=== PATIENT | male | born 1935 | race Caucasian/White ===

== ENCOUNTER 2017-08-27 14:02 | Inpatient (IN) ==
[2017-08-27 14:58] LABS: Hematocrit 38.1 % (37.5-50.1); Hemoglobin 13.4 g/dL (12.9-16.9); Mean Corpuscular HGB Conc 35.2 g/dL (31.6-35.5); Mean Corpuscular Hemoglobin 30.7 pg (28.0-33.3); Mean Corpuscular Volume 87.4 fL (83.0-100.0); Mean Platelet Volume 9.9 fL (9.4-12.4); Platelet Count 156 K/mcL (140-400); Red Blood Count 4.36 M/mcL (4.19-5.50); Red Cell Distribution Width 13.6 % (11.5-14.5)
[2017-08-27] MEDS ORDERED: 0.9 % Sodium Chloride 1,000 ML IVC ONE (15:01)
--- NOTE | 2017-08-27 15:06 | Emergency Department Note ---
Disposition Clinical Impression: Lytic bone lesion of hip Leukopenia Qualifiers: Leukopenia type: neutropenia Neutropenia type: other Qualified Code(s): D70.8 - Other neutropenia Diarrhea Qualifiers: Diarrhea type: unspecified type Qualified Code(s): R19.7 - Diarrhea, unspecified Nausea and vomiting Qualifiers: Vomiting type: unspecified Vomiting Intractability: non-intractable Qualified Code(s): R11.2 - Nausea with vomiting, unspecified Abdominal pain Qualifiers: Abdominal location: epigastric Qualified Code(s): R10.13 - Epigastric pain Disposition: Admitted As Inpatient Condition: Fair Referrals: Elizabeth Gutierrez SENIOR GRAPHIC DESIGNER [Primary Care Provider] - Forms: ED Satisfaction Letter, Work/School Release Time of Disposition: 17:23 Abdominal Pain HPI - General Chief Complaint: ED Abdominal Pain Stated Complaint: abd pain Time Seen by Provider: 08/27/17 14:33 Nursing Notes Reviewed: Yes Vital Signs Reviewed: Yes - History of Present Illness HPI Narrative: 81-year-old male presents from home with daughter and bedside for evaluation of epigastric abdominal pain. Onset 3 days ago. Associated with loose stools-3-4X per day, no melena, no hematochezia. Also associated with nausea and vomiting-nonbloody, nonbilious. As well as decreased by mouth intake. Patient also notes dyspnea with exertion concomittent with these symptoms. PMH: Hyperlipidemia, type 2 diabetes managed with diet. No history of DVT, PE, ACS, aortic aneurysm. ROS: Positive: As above Negative: Fever, chills, chest pain, palpitations, unusual back pain, diaphoresis, dysuria, cough, Pain Scale: 8 - Related Data Allergies Allergy/AdvReac Type Severity Reaction Status Date / Time Penicillins [PCN] Allergy Hives Verified 08/27/17 14:10 All systems ED: reviewed and negative except as stated. Review of Systems: As Per HPI Physical Exam Vital Signs Reviewed General: Patient is alert, oriented, and in no acute distress. Head: atraumatic, normocephalic Eye: normal appearance, no scleral icterus, no conjunctival injection ENT: mucous membranes moist, normal external ear exam Neck: normal inspection, trachea midline, full ROM Chest: normal inspection, symmetric chest rise Respiratory: Good respiratory effort. Bilateral breath sounds are clear without wheezing, crackles, or rhonchi. Cardiovascular: Regular rate and rhythm. No clicks, rubs, gallops, or murmors. Normal heart sounds. Abdomen: Bowel sounds present normoactive x-4 quadrants. Abdomen is soft, nondistended. Epigastric tenderness. Guarding is present. No rebound. Musculoskeletal: Spontaneously moving all extremities. Skin: warm, dry, intact. Neuro: Alert and oriented x4. Sensation light touch intact. Psych: Patient's affect is appropriate for situation. Course Course Narrative: Patient presents with abdominal pain concerning for multiple potential etiologies. CT abdomen and pelvis has multiple findings. Clinically, do not suspect ileus as he is having nausea, vomiting, loose stools. I am concerned about the right iliac lytic lesion in the context of his leukopenia. He has had leukopenia previously noted on his historical lab work back 2014. Otherwise , patient appears comfortable at this time. Nausea well controlled with Zofran. I discussed the above with the patient, his daughter, and at bedside. They are agreeable to admission for continued evaluation and management. Next I discussed the patient with the admitting hospitals, Dr. Sanders, who agrees to accept the patient for continued evaluation and management. Abdomen/Pelvis CT 08/27/17 15:02 IMPRESSION: 1. Intraluminal hyperdensity within the fundus of the stomach, may reflect gastritis/ small upper GI bleed. Could consider endoscopy for further evaluation, as indicated. 2. Borderline dilated loops of small bowel without obvious transition point, may reflect ileus, but early bowel obstruction is difficult to exclude. Progress radiographs could be of further diagnostic aid, as indicated. 3. Diverticulosis without CT evidence of diverticulitis. 4. Small amount of nonspecific free fluid in the pelvis. 5. Lytic lesion involving the right iliac bone is suspicious for neoplasm, of uncertain primary. MRI, bone scan and/or soft tissue sampling could be considered for further evaluation, as indicated. 6. Other stable and incidental findings, as above. D/ / Gustavo Brewer / Gustavo Brewer Interpreting Provider: Gustavo Brewer Vital Signs Temperature 98.6 F 08/27/17 14:09 Pulse Rate 129 08/27/17 14:09 Respiratory Rate 22 08/27/17 14:09 Blood Pressure 133/69 08/27/17 14:09 O2 Sat by Pulse Oximetry 97 08/27/17 14:09 Temperature 98.6 F 08/27/17 15:05 Pulse Rate 105 08/27/17 16:28 Respiratory Rate 22 08/27/17 16:28 Blood Pressure 118/73 08/27/17 16:28 O2 Sat by Pulse Oximetry 98 08/27/17 16:28 Oxygen Delivery Oxygen Delivery Room Air Abdominal Pain - Lab Data Result diagrams: 08/27/17 14:40 08/27/17 14:40 Lab Results 08/27/17 08/27/17 08/27/17 Range/Units 14:40 14:40 15:52 WBC 2.3 L (4.3-11.1) K/mcL RBC 4.36 (4.19-5.50) M/mcL Hgb 13.4 (12.9-16.9) g/dL Hct 38.1 (37.5-50.1) % MCV 87.4 (83.0-100.0) fL MCH 30.7 (28.0-33.3) pg MCHC 35.2 (31.6-35.5) g/dL RDW 13.6 (11.5-14.5) % Plt Count 156 (140-400) K/mcL MPV 9.9 (9.4-12.4) fL Seg Neutrophils % 60.0 % Lymphocytes % 18.0 % Monocytes % 22.0 % Neutrophils # 1.4 L (1.6-8.9) K/mcL Lymphocytes # 0.4 L (0.6-4.6) K/mcL Monocytes # 0.5 (0.0-1.3) K/mcL Platelet Estimate Normal (Normal) Sodium 134 L (136-145) mEq/L Potassium 4.2 (3.5-5.1) mEq/L Chloride 102 (98-107) mEq/L Carbon Dioxide 22 L (23-29) mEq/L BUN 24 H (8-23) mg/dL Creatinine 1.15 (0.70-1.30) mg/dL Est GFR ( Amer) > 60 (> 60) Est GFR (Non-Af Amer) > 60 (> 60) BUN/Creatinine Ratio 21 (6-26) Glucose 235 H (70-105) mg/dL Calculated Osmolality 290 (280-300) Lactic Acid 1.7 (0.5-2.2) mmol/L Calcium 9.8 (8.6-10.3) mg/dL Total Bilirubin 0.5 (0.3-1.0) mg/dL Direct Bilirubin 0.0 (0.0-0.2) mg/dL Indirect Bilirubin 0.5 (0.0-1.2) mg/dL AST 18 (13-39) Units/L ALT 15 (7-52) Units/L Alkaline Phosphatase 62 (34-104) Units/L Serum Total Protein 8.5 (6.4-8.9) g/dL Albumin 4.0 (3.5-5.7) g/dL Globulin 4.5 H (2.4-3.5) g/dL Albumin/Globulin Ratio 0.9 L (1.1-2.2) Amylase 19 L (29-103) Units/L Lipase 16 (11-82) Units/L
--- NOTE | 2017-08-27 15:11 | Emergency Department Note ---
Disposition Clinical Impression: Lytic bone lesion of hip Leukopenia Qualifiers: Leukopenia type: neutropenia Neutropenia type: other Qualified Code(s): D70.8 - Other neutropenia Diarrhea Qualifiers: Diarrhea type: unspecified type Qualified Code(s): R19.7 - Diarrhea, unspecified Nausea and vomiting Qualifiers: Vomiting type: unspecified Vomiting Intractability: non-intractable Qualified Code(s): R11.2 - Nausea with vomiting, unspecified Abdominal pain Qualifiers: Abdominal location: epigastric Qualified Code(s): R10.13 - Epigastric pain Disposition: Admitted As Inpatient Condition: Fair General Adult HPI - General Chief complaint: ED Abdominal Pain Stated complaint: abd pain Time Seen by Provider: 08/27/17 14:33 - History of Present Illness Pain Scale: 8 - Related Data Home Medications Medication Instructions Recorded Confirmed Aspirin Enteric Coated [Aspirin EC] 81 mg PO DAILY 08/27/17 08/27/17 Celecoxib [Celebrex] 200 mg PO DAILY 08/27/17 08/27/17 Cetirizine HCl [Zyrtec] 10 mg PO DAILY 08/27/17 08/27/17 Gatifloxacin [Zymaxid] 1 drop LEFT EYE BID 08/27/17 08/27/17 Ketorolac Tromethamine 1 drop OP BID 08/27/17 08/27/17 Losartan [Cozaar] 25 mg PO DAILY 08/27/17 08/27/17 Naproxen [Naproxen] 500 mg PO BID PRN 08/27/17 08/27/17 Omeprazole [PriLOSEC] 40 mg PO DAILY 08/27/17 08/27/17 Simvastatin [Zocor] 40 mg PO HS 08/27/17 08/27/17 Allergies Allergy/AdvReac Type Severity Reaction Status Date / Time Penicillins [PCN] Allergy Hives Verified 08/27/17 14:10 Course Vital Signs Temperature 98.6 F 08/27/17 14:09 Pulse Rate 129 08/27/17 14:09 Respiratory Rate 22 08/27/17 14:09 Blood Pressure 133/69 08/27/17 14:09 O2 Sat by Pulse Oximetry 97 08/27/17 14:09 Temperature 98.6 F 08/27/17 15:05 Pulse Rate 109 08/27/17 18:00 Respiratory Rate 18 07/06/18 18:00 Blood Pressure 128/75 07/06/18 18:00 O2 Sat by Pulse Oximetry 96 08/27/17 18:00 Oxygen Delivery Oxygen Delivery Room Air Medical Decision Making - Lab Data Result diagrams: 08/27/17 14:40 08/27/17 14:40 Lab Results 08/27/17 08/27/17 08/27/17 Range/Units 14:40 14:40 15:52 WBC 2.3 L (4.3-11.1) K/mcL RBC 4.36 (4.19-5.50) M/mcL Hgb 13.4 (12.9-16.9) g/dL Hct 38.1 (37.5-50.1) % MCV 87.4 (83.0-100.0) fL MCH 30.7 (28.0-33.3) pg MCHC 35.2 (31.6-35.5) g/dL RDW 13.6 (11.5-14.5) % Plt Count 156 (140-400) K/mcL MPV 9.9 (9.4-12.4) fL Seg Neutrophils % 60.0 % Lymphocytes % 18.0 % Monocytes % 22.0 % Neutrophils # 1.4 L (1.6-8.9) K/mcL Lymphocytes # 0.4 L (0.6-4.6) K/mcL Monocytes # 0.5 (0.0-1.3) K/mcL Platelet Estimate Normal (Normal) Sodium 134 L (136-145) mEq/L Potassium 4.2 (3.5-5.1) mEq/L Chloride 102 (98-107) mEq/L Carbon Dioxide 22 L (23-29) mEq/L BUN 24 H (8-23) mg/dL Creatinine 1.15 (0.70-1.30) mg/dL Est GFR ( Amer) > 60 (> 60) Est GFR (Non-Af Amer) > 60 (> 60) BUN/Creatinine Ratio 21 (6-26) Glucose 235 H (70-105) mg/dL Calculated Osmolality 290 (280-300) Lactic Acid 1.7 (0.5-2.2) mmol/L Calcium 9.8 (8.6-10.3) mg/dL Total Bilirubin 0.5 (0.3-1.0) mg/dL Direct Bilirubin 0.0 (0.0-0.2) mg/dL Indirect Bilirubin 0.5 (0.0-1.2) mg/dL AST 18 (13-39) Units/L ALT 15 (7-52) Units/L Alkaline Phosphatase 62 (34-104) Units/L Serum Total Protein 8.5 (6.4-8.9) g/dL Albumin 4.0 (3.5-5.7) g/dL Globulin 4.5 H (2.4-3.5) g/dL Albumin/Globulin Ratio 0.9 L (1.1-2.2) Amylase 19 L (29-103) Units/L Lipase 16 (11-82) Units/L Attestation Statement - Attestation Attestation: I examined this patient and my medical decision-making was reviewed with the APPRAISAL COORDINATOR/PA/Advanced Practice Nurse/Resident Physician. I agree with the documented findings, disposition and treatment plan as described except to the extent set forth below. The patient has epigastric abdominal pain with some diarrhea and on exam he does have a moderate amount of pain located just below the epigastric region, I do not feel pulsatile abdominal mass, there is some voluntary guarding. Abdomen is normal in appearance. The patient is quite tachycardic. He is here with his and daughter. Labs including lipase and LFTs are ordered as well as noncontrast abdominal pelvic CT and results are pending. [id number] I did review the EKG showing sinus tachycardia with a rate of 108 bpm without acute ischemic change [id number]
[2017-08-27 15:30] LABS: Alanine Aminotransferase 15 Units/L (7-52); Albumin/Globulin Ratio 0.9 (1.1-2.2); Alkaline Phosphatase 62 Units/L (34-104); Amylase 19 Units/L (29-103); Aspartate Amino Transferase 18 Units/L (13-39); BUN/Creatinine Ratio 21 (6-26); Bilirubin,Indirect 0.5 mg/dL (0.0-1.2); Bilirubin,Total 0.5 mg/dL (0.3-1.0); Blood Urea Nitrogen 24 mg/dL (8-23); Calcium 9.8 mg/dL (8.6-10.3); Carbon Dioxide 22 mEq/L (23-29); Chloride 102 mEq/L (98-107); Globulin 4.5 g/dL (2.4-3.5); Glucose 235 mg/dL (70-105); Lipase 16 Units/L (11-82); Osmolality,Calculated 290 (280-300); Potassium 4.2 mEq/L (3.5-5.1); Sodium 134 mEq/L (136-145); Total Protein 8.5 g/dL (6.4-8.9); eGFR For African Americans > 60 (> 60); eGFR For Non-African Americans > 60 (> 60)
[2017-08-27 15:52] LABS: Lymphocytes # 0.4 K/mcL (0.6-4.6); Monocytes # 0.5 K/mcL (0.0-1.3); Neutrophils # 1.4 K/mcL (1.6-8.9)
[2017-08-27 15:53] LABS: Platelet Estimate Normal (Normal)
--- NOTE | 2017-08-27 19:52 | Internal Med History&Physical ---
<Brandon Herrera - Last Filed: 08/27/17 21:21> Date of Encounter: 08/27/17 Time of Encounter: 19:52 Internal Medicine - H&P: HPI Chief complaint: N/V/D Admitted From: Home History of present illness: Mr. Gross is a 81 year old male with a past medical history of hyperlipidemia and diet controlled diabetes mellitus type 2 that presents complaining of right hip pain for the past week radiating to his leg. Of note, patient reports taking Tylenol and Naproxen twice a day for hip pain. He reports nausea, vomiting, diarrhea for the past 4 days along with periumbilical abdominal pain, decreased appetite, and chills. Patient denies fever, chest pain, shortness of breath, hematemesis or melena, weight loss or weight gain, or recent travel. Patient reports his son is treated for CML. Past Med Surg Social Fam HX - Past Medical History Medical history: diabetes, GERD, hyperlipidemia Psychiatric history: no psych history - Past Surgical History Surgical History: orthopedic, other (left hip replacement, left shoulder) Additional surgical history: cataract - Social History Smoking Status: Never smoker Smokeless Tobacco Status: No Alcohol use: none Drug use: none Current living situation: Home - Independent, With Family Activity Level: Independent ambulation - Family History Mother Hx Family Endocrine Disorder: Yes (DM) Son Hx Family Cancer: Yes (CML) Internal Medicine - H&P: Meds Aspirin Enteric Coated [Aspirin EC] 81 mg PO DAILY 08/27/17 [History] Celecoxib [Celebrex] 200 mg PO DAILY 08/27/17 [History] Cetirizine HCl [Zyrtec] 10 mg PO DAILY 08/27/17 [History] Gatifloxacin [Zymaxid] 1 drop LEFT EYE BID 08/27/17 [History] Ketorolac Tromethamine 1 drop OP BID 08/27/17 [History] Losartan [Cozaar] 25 mg PO DAILY 08/27/17 [History] Naproxen [Naproxen] 500 mg PO BID PRN 08/27/17 [History] Omeprazole [PriLOSEC] 40 mg PO DAILY 08/27/17 [History] Simvastatin [Zocor] 40 mg PO HS 08/27/17 [History] 3 Allergy/AdvReac Type Severity Reaction Status Date / Time Penicillins [PCN] Allergy Hives Verified 08/27/17 14:10 All Systems PM: A 10-system review of systems was performed and is negative for pertinent findings except as documented above in the HPI. - Constitutional Constitutional: anorexia, chills, fatigue, no fever(s), no falls, no night sweats, no weakness, no weight gain, no weight loss - EENT Eyes: no blurry vision, no diplopia Nose, mouth and throat: no sinus pain, no sore throat - Cardiovascular Cardiovascular ROS IM: palpitations, no chest pain, no lightheadedness, no syncope - Respiratory Respiratory: dyspnea, no cough, no wheezing, no chest congestion - Gastrointestinal Gastrointestinal: abdominal pain, diarrhea, loose stools, nausea, vomiting, no change in bowel habits, no coffee ground emesis, no constipation, no dysphagia, no fecal incontinence, no hematemesis, no hematochezia, no melena - Genitourinary Genitourinary ROS male: no dysuria, no hematuria, no urinary frequency, no urinary urgency - Musculoskeletal Musculoskeletal ROS IM: arthralgias, back pain, no numbness, no tingling - Integumentary Integumentary IM: no erythema, no rash, no skin ulcer - Neurological Neurological ROS: no dizziness, no numbness, no weakness - Psychiatric Psychiatric: no anxiety, no depression - Endocrine Endocrine IM: no excessive sweating, no fatigue, no polydipsia, no polyphagia, no polyuria - Hematologic/Lymphatic Hematologic/Lymphatic: no easy bleeding, no easy bruising, no lymphadenopathy - Constitutional Vitals: Temp Pulse Resp BP Pulse Ox 98.6 F 109 18 128/75 96 08/27/17 15:05 08/27/17 18:00 08/27/17 18:00 08/27/17 18:00 08/27/17 18:00 General appearance: Present: cooperative, A&O X 3, pleasant, no acute distress, obese, answers questions appropriately - Head Head exam: Present: atraumatic, normocephalic - Eye Eye exam: Present: PERRL, conjuntiva pink, sclera anicteric Pupils: Present: PERRL - ENT ENT exam: Present: mucous membranes dry, normal oropharynx - Neck Neck exam general surgery: Present: supple, trachea midline. Absent: lymphadenopathy - Respiratory Respiratory exam: Present: CTAB. Absent: accessory muscle use, rales, rhonchi, wheezes - Cardiovascular Cardiovascular exam: Present: +S1, +S2, tachycardia. Absent: diastolic murmur, gallop, rubs, systolic murmur - GI/Abdominal GI/Abdominal exam: Present: normal bowel sounds, soft, no peritoneal signs. Absent: distended, guarding, hepatomegaly, mass, tenderness - Extremities Exam Extremities exam: Present: normal inspection, tenderness (right hip), warm, radial pulses palpable and symmetrical. Absent: calf tenderness, cyanotic, pedal edema - Back Exam Back exam: Present: full ROM, normal inspection, tenderness (right hip). Absent : paraspinal tenderness - Neurological Exam Neurological exam: Present: alert, CN II-XII intact, oriented X3, no focal deficits. Absent: abnormal gait, pronater drift, facial droop, speech deficit - Psychiatric Psychiatric exam: Present: normal affect, normal mood - Skin Skin exam: Present: dry, intact, normal color, warm Internal Med - H&P Results - Labs CBC & Chem 7: 08/27/17 14:40 08/27/17 14:40 - Pulse Oximetry Interpretation Digit-Finger O2 Sat by Pulse Oximetry: 96 (On RA) - EKG Data EKG shows normal: sinus rhythm Rate: tachycardia - Impressions ITS Impressions Abdomen/Pelvis CT 08/27/17 15:02 IMPRESSION: 1. Intraluminal hyperdensity within the fundus of the stomach, may reflect gastritis/ small upper GI bleed. Could consider endoscopy for further evaluation, as indicated. 2. Borderline dilated loops of small bowel without obvious transition point, may reflect ileus, but early bowel obstruction is difficult to exclude. Progress radiographs could be of further diagnostic aid, as indicated. 3. Diverticulosis without CT evidence of diverticulitis. 4. Small amount of nonspecific free fluid in the pelvis. 5. Lytic lesion involving the right iliac bone is suspicious for neoplasm, of uncertain primary. MRI, bone scan and/or soft tissue sampling could be considered for further evaluation, as indicated. 6. Other stable and incidental findings, as above. D/ / Gustavo Brewer / Gustavo Brewer Interpreting Provider: Gustavo Brewer - Assessment and plan (1) Lytic bone lesion of hip Current Visit: Yes Status: Acute Assessment and plan: CT abd/plv reveALED Lytic lesion involving the right iliac bone is suspicious for neoplasm, of uncertain primary. MRI, bone scan and/or soft tissue sampling could be considered for further evaluation, as indicated. Case discussed with oncologist Dr. Debby Hollis, will order protein electrophoresis, skeletal survey, and CT chest with contrast to rule out primary lung malignancy Continue Tylenol and [place] when necessary for pain (2) Leukopenia Current Visit: Yes Status: Acute Assessment and plan: Differential diagnosis includes possible malignancy versus multiple myeloma Protein electrophoresis pending Oncology consulted Qualifiers: Leukopenia type: neutropenia Neutropenia type: unspecified Qualified Code (s): D70.9 - Neutropenia, unspecified (3) Gastroenteritis Current Visit: Yes Status: Acute Assessment and plan: Acute gastritis in the setting of naproxen use for right hip pain Clear liquid diet PPI and Carafate ordered Continue Tylenol and [place] as needed for pain Continue Zofran for nausea Hemoglobin level stable, patient reports a history of internal hemorrhoids, last colonoscopy normal. (4) T2DM (type 2 diabetes mellitus) Current Visit: No Status: Chronic Assessment and plan: Diet controlled Continue Accu-Cheks ACHS Qualifiers: Diabetes mellitus snf insulin use: without snf use Diabetes mellitus complication status: without complication Qualified Code(s): E11.9 - Type 2 diabetes mellitus without complications (5) HTN (hypertension) Current Visit: No Status: Chronic Assessment and plan: Hold losartan Qualifiers: Hypertension type: essential hypertension Qualified Code(s): I10 - Essential (primary) hypertension (6) HLD (hyperlipidemia) Current Visit: No Status: Chronic Assessment and plan: Hold statin Qualifiers: Hyperlipidemia type: unspecified Qualified Code(s): E78.5 - Hyperlipidemia , unspecified (7) DVT prophylaxis Current Visit: Yes Status: Acute Assessment and plan: EPCD's - Time Spent With Patient Total time spent is greater than 50% in coordination of care (as documented) at patient's floor/unit and/or counseling patient: <Terri Miramontes - Last Filed: 08/28/17 01:02> Date of Encounter: 08/28/17 Internal Medicine - H&P: HPI History of present illness: Mr. Gross is a 81 year old male All Systems PM: A 10-system review of systems was performed and is negative for pertinent findings except as documented above in the HPI. - Constitutional Vitals: Temp Pulse Resp BP Pulse Ox 98.7 F 103 16 111/65 96 08/28/17 00:32 08/28/17 00:32 08/28/17 00:32 08/28/17 00:32 08/28/17 00:32 Internal Med - H&P Results - Labs CBC & Chem 7: 08/27/17 14:40 08/27/17 14:40 Labs: Urine 08/28/17 Range/Units 00:00 Urine Color Yellow (Yellow) Urine Clarity Clear (Clear) Urine pH 5.5 (5.0-8.0) pH Units Ur Specific Echo > 1.030 H (1.010-1.025) Urine Protein 30 H (Neg-Trace) mg/dL Urine Glucose (UA) Normal (Normal) mg/dL - Impressions ITS Impressions Bone Osseous Survey 08/27/17 20:47 IMPRESSION: No acute osseous abnormality. No focal lytic or blastic osseous lesion to suggest multiple myeloma. D/ / Alma Rosa Veliz MD / Alma Rosa Veliz MD Interpreting Provider: Alma Rosa Veliz MD Chest CT 08/27/17 20:47 IMPRESSION: No acute disease. D/ / Yvan Stapleton MD / Yvan Stapleton MD Interpreting Provider: Yvan Stapleton MD - Attending Attestation I have seen and examined this patient independently. I have discussed with resident physician Dr. Herrera regarding the management plan. Agree with the documentation. - Assessment and plan (1) Leukopenia Current Visit: Yes Status: Acute Qualifiers: Leukopenia type: neutropenia Neutropenia type: unspecified Qualified Code (s): D70.9 - Neutropenia, unspecified (2) Lytic bone lesion of hip Current Visit: Yes Status: Acute (3) Gastroenteritis Current Visit: Yes Status: Acute (4) T2DM (type 2 diabetes mellitus) Current Visit: No Status: Chronic Qualifiers: Diabetes mellitus intermediate school teacher insulin use: without snf use Diabetes mellitus complication status: without complication Qualified Code(s): E11.9 - Type 2 diabetes mellitus without complications (5) HLD (hyperlipidemia) Current Visit: No Status: Chronic Qualifiers: Hyperlipidemia type: unspecified Qualified Code(s): E78.5 - Hyperlipidemia , unspecified (6) HTN (hypertension) Current Visit: No Status: Chronic Qualifiers: Hypertension type: essential hypertension Qualified Code(s): I10 - Essential (primary) hypertension (7) DVT prophylaxis Current Visit: Yes Status: Acute - Time Spent With Patient Total time spent is greater than 50% in coordination of care (as documented) at patient's floor/unit and/or counseling patient:
[2017-08-27] MEDS ORDERED: Naloxone 0.4 MG/ML INJ IVP PRN (20:27)
[2017-08-27] MEDS ORDERED: *HR* HYDROcodone/Acet 5/325 mg TABLET PO PRN (20:27)
[2017-08-27] MEDS ORDERED: Acetaminophen 325 MG TABLET PO PRN (20:27)
[2017-08-27] MEDS ORDERED: Isovue-370 500 ML INFUS..BTL IV ONE (20:47)
[2017-08-27] MEDS: Sucralfate 1 GM TABLET PO SCH (21:59)
[2017-08-27] MEDS: Gatifloxacin OPTH Drops 2.5 mL BOTTLE LEFT EYE SCH (22:00)
[2017-08-27] MEDS: 0.9 % Sodium Chloride 1,000 ML IVC SCH (22:03)
[2017-08-28 00:20] LABS: Bilirubin,Urine Negative (Negative); Blood,Urine Trace (Negative); Color,Urine Yellow (Yellow); Glucose,Urine (UA) Normal (Normal); Ketones,Urine Trace mg/dL (Negative); Leukocyte Esterase,Urine Negative (Negative); Nitrite,Urine Negative (Negative); PH,Urine 5.5 pH Units (5.0-8.0); Protein,Urine 30 mg/dL (Neg-Trace); Specific Gravity,Urine > 1.030 (1.010-1.025); Urobilinogen,Urine Normal (Normal)
[2017-08-28 00:21] LABS: Clarity,Urine Clear (Clear)
[2017-08-28 00:27] LABS: Bacteria,Urine None Seen per hpf (None-Few); Hyaline Casts,Urine None Seen per lpf (None-Few); RBC,Urine 0-3 per hpf (0-3); Squamous Epithelial Cell,Urine Few per lpf (None-Few); WBC,Urine 0-3 per hpf (0-3)
[2017-08-28] MEDS: Ondansetron 4 MG/2 ML VIAL IVP PRN ×3 (02:51→17:06)
[2017-08-28 03:50] LABS: Basophils % 0.4 %; Hematocrit 35.5 % (37.5-50.1); Hemoglobin 12.5 g/dL (12.9-16.9); Immature Granulocytes % 0.4 % (0-4); Lymphocytes # 0.9 K/mcL (0.6-4.6); Lymphocytes % 37.1 %; Mean Corpuscular HGB Conc 35.2 g/dL (31.6-35.5); Mean Corpuscular Hemoglobin 30.6 pg (28.0-33.3); Mean Platelet Volume 10.3 fL (9.4-12.4); Monocytes # 0.4 K/mcL (0.0-1.3); Monocytes % 15.3 %; Neutrophils # 1.1 K/mcL (1.6-8.9); Platelet Count 147 K/mcL (140-400); Red Blood Count 4.08 M/mcL (4.19-5.50); Red Cell Distribution Width 13.8 % (11.5-14.5); Segmented Neutrophils % 46.8 %
[2017-08-28 04:13] LABS: BUN/Creatinine Ratio 18 (6-26); Blood Urea Nitrogen 17 mg/dL (8-23); Calcium 8.7 mg/dL (8.6-10.3); Carbon Dioxide 19 mEq/L (23-29); Chloride 103 mEq/L (98-107); Glucose 143 mg/dL (70-105); Osmolality,Calculated 282 (280-300); Potassium 3.8 mEq/L (3.5-5.1); Sodium 134 mEq/L (136-145); eGFR For African Americans > 60 (> 60); eGFR For Non-African Americans > 60 (> 60)
[2017-08-28 04:19] LABS: Platelet Estimate Normal (Normal)
[2017-08-28] MEDS: Famotidine 20 MG/2 ML VIAL IVP SCH ×2 (05:10→18:10)
[2017-08-28] MEDS: Sucralfate 1 GM TABLET PO SCH ×4 (08:04→21:06)
[2017-08-28] MEDS: 0.9 % Sodium Chloride 1,000 ML IVC SCH (08:04)
[2017-08-28] MEDS: Gatifloxacin OPTH Drops 2.5 mL BOTTLE LEFT EYE SCH (08:51)
--- NOTE | 2017-08-28 09:18 | Oncology Inp Consult Note ---
Date of Encounter: 08/28/17 Time of Encounter: 08:00 Assessment and Plan (1) Lytic bone lesion of hip Status: Acute Assessment and plan: Patient symptomatic with pain imaging workup does not show any evidence off other lytic lesions, further evaluated with skeletal survey, Ct imaging. SPEP is pending to r/o plasma cell dyscrasia. Bone scan to r/o osteoblastic process. Consider IR biopsy of the lesion for diagnosis. Abd imaging findings noted, has diarrhea since AM, r/o ac etiology. He has had a colonoscopy in [address] Hernandez that showed possible diverticulosis diverticulitis. 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 - Data of Consult Requesting Physician: Raghav Metzger Primary Care Provider: Elizabeth Gutierrez CNP - Consult Narrative Reason for consult: lytic bone lesion History of present illness: Mr. Gross is a 81 year old male with hx diabetes, GERD, hyperlipidemia, who presented to the emergency room with the right hip pain right lower extremity pain underwent right hip x-ray followed by CT scan that showed right iliac wing lytic lesion. CT imaging also showed gastric thickening, dilated small bowel loops. Since hospitalization CT scan of the chest was obtained which does not show any lung masses or adenopathy, skeletal survey is otherwise negative. Lab works significant for elevated globulins without any significant anemia renal insufficiency or hypercalcemia. Patient reports that since this morning he has diarrhea, 2 episodes. He has some abdominal discomfort. He does not have any shortness of breath or chest pain. He complains of pain in both hips due to arthritis Past Med Surg Social Fam HX - Past Medical History Medical history: diabetes, GERD, hyperlipidemia Psychiatric history: no psych history - Past Surgical History Surgical History: orthopedic, other (left hip replacement, left shoulder) Additional surgical history: cataract - Social History Smoking Status: Never smoker Smokeless Tobacco Status: No Alcohol use: none Drug use: none - Family History Mother Cause of : stroke Hx Family Endocrine Disorder: Yes (DM) Son Hx Family Cancer: Yes (CML) Medications and Allergies Aspirin Enteric Coated [Aspirin EC] 81 mg PO DAILY 08/27/17 [History] Celecoxib [Celebrex] 200 mg PO DAILY 08/27/17 [History] Cetirizine HCl [Zyrtec] 10 mg PO DAILY 08/27/17 [History] Gatifloxacin [Zymaxid] 1 drop LEFT EYE BID 08/27/17 [History] Ketorolac Tromethamine 1 drop OP BID 08/27/17 [History] Losartan [Cozaar] 25 mg PO DAILY 08/27/17 [History] Naproxen [Naproxen] 500 mg PO BID PRN 08/27/17 [History] Omeprazole [PriLOSEC] 40 mg PO DAILY 08/27/17 [History] Simvastatin [Zocor] 40 mg PO HS 08/27/17 [History] 3 Allergy/AdvReac Type Severity Reaction Status Date / Time Penicillins [PCN] Allergy Hives Verified 08/27/17 14:10 Review of systems: as in HPI Oncology - Exam - Constitutional Vitals: Temp Pulse Resp BP Pulse Ox 98.1 F 101 16 129/81 96 08/28/17 06:31 08/28/17 06:31 08/28/17 06:31 08/28/17 06:31 08/28/17 06:31 General appearance: no acute distress - Head Head exam: Present: atraumatic, normal inspection - Eye Eye exam: Present: sclera anicteric - ENT ENT exam: Present: mucous membranes moist - Neck Neck exam: Present: full ROM, normal inspection - Respiratory Respiratory exam: Present: CTAB - Cardiovascular Cardiovascular exam: Present: +S1, +S2, systolic murmur - GI/Abdominal GI/Abdominal exam: Present: normal bowel sounds, soft - Extremities Exam Extremities exam: Present: normal inspection - Neurological Exam Neurological exam: Present: alert, CN II-XII intact, oriented X3, no focal deficits - Psychiatric Psychiatric exam: Present: normal affect Oncology - Results Labs: 3 08/28/17 08/28/17 03:19 03:19 WBC 2.3 L RBC 4.08 L Hgb 12.5 L Hct 35.5 L MCV 87.0 MCH 30.6 MCHC 35.2 RDW 13.8 Plt Count 147 MPV 10.3 Immature Gran % 0.4 Seg Neutrophils % 46.8 Lymphocytes % 37.1 Monocytes % 15.3 Eosinophils % 0.0 Basophils % 0.4 Neutrophils # 1.1 L Lymphocytes # 0.9 Monocytes # 0.4 Eosinophils # 0.0 Basophils # 0.0 Platelet Estimate Normal Sodium 134 L Potassium 3.8 Chloride 103 Carbon Dioxide 19 L BUN 17 Creatinine 0.97 Est GFR ( Amer) > 60 Est GFR (Non-Af Amer) > 60 BUN/Creatinine Ratio 18 Glucose 143 H Calculated Osmolality [address] CAP, bone survey reviewed Consult Discharge Plan - Plan Referrals: Elizabeth Gutierrez, PAROLE SUPERVISOR [Primary Care Provider] -
--- NOTE | 2017-08-28 10:05 | Internal Med Progress Note ---
Date of Encounter: 08/29/17 Time of Encounter: 11:00 - Assessment and plan (1) Lytic bone lesion of hip Current Visit: Yes Status: Acute Assessment and plan: CT abd/plv reveALED Lytic lesion involving the right iliac bone is suspicious for neoplasm, of uncertain primary. Oncologist Dr. Debby Hollis consulted who will order protein electrophoresis , skeletal survey, and CT chest with contrast to rule out primary lung malignancy Continue Tylenol and [place] when necessary for pain (2) Gastroenteritis Current Visit: Yes Status: Acute Assessment and plan: Acute gastritis in the setting of naproxen use for right hip pain Clear liquid diet Continue PPI and Carafate ordered Stool cultures pending (3) Leukopenia Current Visit: Yes Status: Acute Assessment and plan: Differential diagnosis includes possible malignancy versus multiple myeloma Protein electrophoresis pending Oncology consulted Qualifiers: Leukopenia type: neutropenia Neutropenia type: unspecified Qualified Code (s): D70.9 - Neutropenia, unspecified (4) T2DM (type 2 diabetes mellitus) Current Visit: No Status: Chronic Assessment and plan: Diet controlled Continue Accu-Cheks ACHS Qualifiers: Diabetes mellitus manager long term care insulin use: without residential use Diabetes mellitus complication status: without complication Qualified Code(s): E11.9 - Type 2 diabetes mellitus without complications (5) HLD (hyperlipidemia) Current Visit: No Status: Chronic Assessment and plan: Hold statin Qualifiers: Hyperlipidemia type: unspecified Qualified Code(s): E78.5 - Hyperlipidemia , unspecified (6) HTN (hypertension) Current Visit: No Status: Chronic Assessment and plan: Hold losartan Qualifiers: Hypertension type: essential hypertension Qualified Code(s): I10 - Essential (primary) hypertension (7) DVT prophylaxis Current Visit: Yes Status: Acute Assessment and plan: EPCD's - Time Spent With Patient Total time spent is greater than 50% in coordination of care (as documented) at patient's floor/unit and/or counseling patient: - Subjective Interval history: Patient still complains of diarrhea this morning; stool cultures pending Patient also with right hip pain and workup in process to rule out lytic bone lesion of right hip - Constitutional Vitals: Temp Pulse Resp BP Pulse Ox 98.1 F 101 16 129/81 96 08/28/17 06:31 08/28/17 06:31 08/28/17 06:31 08/28/17 06:31 08/28/17 06:31 General appearance: Present: cooperative, A&O X 3, pleasant, no acute distress, obese, answers questions appropriately - Cardiovascular Cardiovascular exam: Present: RRR, +S1, +S2. Absent: diastolic murmur, gallop, rubs, systolic murmur - GI/Abdominal GI/Abdominal exam: Present: normal bowel sounds, soft, no peritoneal signs. Absent: distended, tenderness Internal Medicine: Result - Labs CBC & Chem 7: 08/28/17 03:19 08/28/17 03:19 Labs: Short CBC 08/28/17 Range/Units 03:19 WBC 2.3 L (4.3-11.1) K/mcL Hgb 12.5 L (12.9-16.9) g/dL Hct 35.5 L (37.5-50.1) % Plt Count 147 (140-400) K/mcL Neutrophils # 1.1 L (1.6-8.9) K/mcL BMP 08/28/17 03:19 Sodium 134 L Potassium 3.8 Chloride 103 Carbon Dioxide 19 L BUN 17 Creatinine 0.97 Glucose 143 H Calcium 8.7 - VTE Documentation of Mechanical Device: Intermittent pneumatic compression device Consult Discharge Plan - Plan Referrals: Elizabeth Gutierrez, WELL SITE DRILLING ENGINEER [Primary Care Provider] -
[2017-08-28] MEDS: PrednisoLONE Acetate 1% Opth 5 ML BOTTLE LEFT EYE SCH (21:07)
[2017-08-28] MEDS: Ketorolac OPTH Soln 5 ML BOTTLE LEFT EYE SCH (21:07)
[2017-08-28 22:51] LABS: Adenovirus F 40/41 PCR Not detected (Not detect); Astrovirus PCR Not detected (Not detect); C.difficile Toxin A/B by PCR Not detected (Not detect); Campylobacter by PCR Not detected (Not detect); Cryptosporidium by PCR Not detected (Not detect); Cyclospora cayetanensis PCR Not detected (Not detect); E. coli O157 by PCR Not detected (Not detect); Entamoeba histolytica PCR Not detected (Not detect); Enteroaggregative E.coli(EAEC) Not detected (Not detect); Enteropathogenic E.coli(EPEC) Not detected (Not detect); Enterotoxigenic E.coli (ETEC) Not detected (Not detect); Giardia lamblia PCR Not detected (Not detect); Norovirus GI/GII PCR Not detected (Not detect); Plesiomonas shigelloides PCR Not detected (Not detect); Rotavirus A PCR Not detected (Not detect); Salmonella PCR Not detected (Not detect); Sapovirus PCR Not detected (Not detect); Shig/EnteroinvasiveE coli EIEC Not detected (Not detect); Shigalike tox-prod E coli STEC Not detected (Not detect); Vibrio PCR Not detected (Not detect); Vibrio cholerae PCR Not detected (Not detect); Yersinia enterocolitica PCR Not detected (Not detect)
[2017-08-29] MEDS: Famotidine 20 MG/2 ML VIAL IVP SCH ×2 (06:32→16:56)
[2017-08-29] MEDS: Sucralfate 1 GM TABLET PO SCH ×4 (06:32→22:42)
--- NOTE | 2017-08-29 08:37 | Internal Med Progress Note ---
Date of Encounter: 08/29/17 Time of Encounter: 11:00 - Assessment and plan (1) Lytic bone lesion of hip Current Visit: Yes Status: Acute Assessment and plan: CT abd/plv reveALED Lytic lesion involving the right iliac bone is suspicious for neoplasm, of uncertain primary. Oncologist Dr. Debby Hollis consulted who will order protein electrophoresis , skeletal survey, and CT chest with contrast to rule out primary lung malignancy Continue Tylenol and [place] when necessary for pain (2) Gastroenteritis Current Visit: Yes Status: Acute Assessment and plan: Acute gastritis Clear liquid diet Continue PPI and Carafate Stool cultures negative (3) Leukopenia Current Visit: Yes Status: Acute Assessment and plan: Differential diagnosis includes possible malignancy versus multiple myeloma Protein electrophoresis pending Oncology consulted Qualifiers: Leukopenia type: neutropenia Neutropenia type: unspecified Qualified Code (s): D70.9 - Neutropenia, unspecified (4) T2DM (type 2 diabetes mellitus) Current Visit: No Status: Chronic Assessment and plan: Diet controlled Continue Accu-Cheks ACHS Qualifiers: Diabetes mellitus laborer marine terminal insulin use: without residential use Diabetes mellitus complication status: without complication Qualified Code(s): E11.9 - Type 2 diabetes mellitus without complications (5) HLD (hyperlipidemia) Current Visit: No Status: Chronic Assessment and plan: Hold statin Qualifiers: Hyperlipidemia type: unspecified Qualified Code(s): E78.5 - Hyperlipidemia , unspecified (6) HTN (hypertension) Current Visit: No Status: Chronic Assessment and plan: Hold losartan Qualifiers: Hypertension type: essential hypertension Qualified Code(s): I10 - Essential (primary) hypertension (7) DVT prophylaxis Current Visit: Yes Status: Acute Assessment and plan: EPCD's - Time Spent With Patient Total time spent is greater than 50% in coordination of care (as documented) at patient's floor/unit and/or counseling patient: - Subjective Interval history: Patient still complains of diarrhea this morning; stool cultures negative Patient also with right hip pain and workup in process to rule out lytic bone lesion of right hip - Constitutional Vitals: Temp Pulse Resp BP Pulse Ox 99.1 F 102 18 132/75 95 08/29/17 06:35 08/29/17 06:35 08/29/17 06:35 08/29/17 06:35 08/29/17 06:35 General appearance: Present: cooperative, A&O X 3, pleasant, no acute distress, obese, answers questions appropriately - Respiratory Respiratory exam: Present: CTAB. Absent: accessory muscle use, rales, rhonchi, wheezes Internal Medicine: Result - Labs CBC & Chem 7: 08/29/17 08:57 08/29/17 08:57 - VTE Documentation of Mechanical Device: Intermittent pneumatic compression device Consult Discharge Plan - Plan Referrals: Elizabeth Gutierrez, SKIP HOIST OPERATOR [Primary Care Provider] -
[2017-08-29 09:06] LABS: Hematocrit 35.8 % (37.5-50.1); Hemoglobin 12.2 g/dL (12.9-16.9); Mean Corpuscular HGB Conc 34.1 g/dL (31.6-35.5); Mean Corpuscular Hemoglobin 29.5 pg (28.0-33.3); Mean Corpuscular Volume 86.7 fL (83.0-100.0); Platelet Count 150 K/mcL (140-400); Red Blood Count 4.13 M/mcL (4.19-5.50); Red Cell Distribution Width 13.8 % (11.5-14.5)
[2017-08-29 09:27] LABS: Lymphocytes # 1.6 K/mcL (0.6-4.6); Monocytes # 0.4 K/mcL (0.0-1.3); Neutrophils # 2.3 K/mcL (1.6-8.9); Platelet Estimate Normal (Normal)
[2017-08-29 09:30] LABS: BUN/Creatinine Ratio 14 (6-26); Blood Urea Nitrogen 14 mg/dL (8-23); Calcium 9.1 mg/dL (8.6-10.3); Carbon Dioxide 24 mEq/L (23-29); Chloride 97 mEq/L (98-107); Glucose 207 mg/dL (70-105); Osmolality,Calculated 277 (280-300); Potassium 3.5 mEq/L (3.5-5.1); Sodium 130 mEq/L (136-145); eGFR For African Americans > 60 (> 60); eGFR For Non-African Americans > 60 (> 60)
[2017-08-29] MEDS: 0.9 % Sodium Chloride 1,000 ML IVC SCH ×2 (09:43→22:42)
--- NOTE | 2017-08-29 12:47 | Oncology Inp Progress Note ---
Date of Encounter: 08/29/17 Time of Encounter: 12:00 (1) Lytic bone lesion of hip Current Visit: Yes Status: Acute Assessment and plan: Patient symptomatic with pain imaging workup does not show any evidence off other lytic lesions, further evaluated with skeletal survey (negative), Ct imaging9 no chest findings). SPEP is pending to r/o plasma cell dyscrasia. Bone scan to r/o osteoblastic process. IR biopsy of lytic lesion discussed with family. 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 Ct abdomen findings noted. Await stool cx and further GI w/u to be considered. Will f/u on the above in AM Oncology: Subj Interval history: Patient is resting, had abd discomfort this AM per family - Constitutional Vitals: Vital Signs Temp Pulse Resp BP Pulse Ox 08/29/17 11:39 97.3 F L 102 16 124/73 94 08/29/17 09:48 95 08/29/17 06:35 99.1 F 102 18 132/75 95 08/29/17 04:24 98.4 F 103 16 132/82 95 08/28/17 23:26 99.0 F 108 18 147/80 96 08/28/17 19:02 99.8 F H 109 18 136/79 94 08/28/17 15:24 98.2 F 68 18 137/64 100 Intake and Output 08/28/17 08/29/17 08/29/17 23:59 07:59 15:59 Intake Total 120 / 120 120 / 120 Balance 120 / 120 120 / 120 Intake: Oral 120 / 120 120 / 120 Other: Meal Breakfast Percent of Meal Consumed 50% # Voids 2 Blood Glucose* 227 133 199 General appearance: no acute distress - Head Head exam: Present: atraumatic, normal inspection - Eye Eye exam: Present: sclera anicteric - Neck Neck exam: Present: normal inspection - Cardiovascular Cardiovascular exam: Present: +S1, +S2 - GI/Abdominal GI/Abdominal exam: Present: distended, soft Oncology: Obj Data - Labs CBC & Chem 7: 08/29/17 08:57 08/29/17 08:57 Labs: Laboratory Results - last 24 hr 08/28/17 08/28/17 08/28/17 07:29 11:17 15:48 WBC RBC Hgb Hct MCV MCH MCHC RDW Plt Count MPV Seg Neutrophils % Band Neutrophils % Lymphocytes % Monocytes % Neutrophils # Lymphocytes # Monocytes # Platelet Estimate Sodium Potassium Chloride Carbon Dioxide BUN Creatinine Est GFR ( Amer) Est GFR (Non-Af Amer) BUN/Creatinine Ratio Glucose POC Glucose 150 H 153 H 129 H Calculated Osmolality Calcium Stl C. cayetanensis PCR Stool Rotavirus A PCR Stl Adenov F 40/ PCR Stool Astrovirus (PCR) Stool Campylobacter PCR Stl C. diff Tox A/B PCR Stool Cryptosporidium PCR Stl Sh Tox Pr E STEC PCR Stool E coli O157 PCR Stl Enterotoxigenic E PCR Stool EPEC (PCR) Stool EAEC (PCR) Stl E. histolytica PCR Stool Giardia Lamblia PCR Stool Salmonella PCR Stool Sapovirus (PCR) Stl P. shigelloides PCR Stl Shigella/EIEC PCR St Y.enterocolitica PCR Stool Vibrio (PCR) Stl Vibrio cholerae PCR Stl Norovirus GI/GII PCR Stl GI Panel (PCR) Com 08/28/17 08/28/17 08/29/17 18:00 20:00 08:57 WBC 4.3 D RBC 4.13 L Hgb 12.2 L Hct 35.8 L MCV 86.7 MCH 29.5 MCHC 34.1 RDW 13.8 Plt Count 150 MPV 10.0 Seg Neutrophils % 18.0 Band Neutrophils % 36.0 H Lymphocytes % 36.0 Monocytes % 10.0 Neutrophils # 2.3 Lymphocytes # 1.6 Monocytes # 0.4 Platelet Estimate Normal Sodium Potassium Chloride Carbon Dioxide BUN Creatinine Est GFR ( Amer) Est GFR (Non-Af Amer) BUN/Creatinine Ratio Glucose POC Glucose 227 H Calculated Osmolality Calcium Stl C. cayetanensis PCR Not detected Stool Rotavirus A PCR Not detected Stl Adenov F 40 PCR Not detected Stool Astrovirus (PCR) Not detected Stool Campylobacter PCR Not detected Stl C. diff Tox A/B PCR Not detected Stool Cryptosporidium PCR Not detected Stl Sh Tox Pr E STEC PCR Not detected Stool E coli O157 PCR Not detected Stl Enterotoxigenic E PCR Not detected Stool EPEC (PCR) Not detected Stool EAEC (PCR) Not detected Stl E. histolytica PCR Not detected Stool Giardia Lamblia PCR Not detected Stool Salmonella PCR Not detected Stool Sapovirus (PCR) Not detected Stl P. shigelloides PCR Not detected Stl Shigella/EIEC PCR Not detected St Y.enterocolitica PCR Not detected Stool Vibrio (PCR) Not detected Stl Vibrio cholerae PCR Not detected Stl Norovirus GI/GII PCR Not detected Stl GI Panel (PCR) Com See below 08/29/17 08:57 WBC RBC Hgb Hct MCV MCH MCHC RDW Plt Count MPV Seg Neutrophils % Band Neutrophils % Lymphocytes % Monocytes % Neutrophils # Lymphocytes # Monocytes # Platelet Estimate Sodium 130 L Potassium 3.5 Chloride 97 L Carbon Dioxide 24 BUN 14 Creatinine 1.03 Est GFR ( Amer) > 60 Est GFR (Non-Af Amer) > 60 BUN/Creatinine Ratio 14 Glucose 207 H POC Glucose Calculated Osmolality 277 L Calcium 9.1 Stl C. cayetanensis PCR Stool Rotavirus A PCR Stl Adenov F 40/41 PCR Stool Astrovirus (PCR) Stool Campylobacter PCR Stl C. diff Tox A/B PCR Stool Cryptosporidium PCR Stl Sh Tox Pr E STEC PCR Stool E coli O157 PCR Stl Enterotoxigenic E PCR Stool EPEC (PCR) Stool EAEC (PCR) Stl E. histolytica PCR Stool Giardia Lamblia PCR Stool Salmonella PCR Stool Sapovirus (PCR) Stl P. shigelloides PCR Stl Shigella/EIEC PCR St Y.enterocolitica PCR Stool Vibrio (PCR) Stl Vibrio cholerae PCR Stl Norovirus GI/GII PCR Stl GI Panel (PCR) Com Consult Discharge Plan - Plan Referrals: Elizabeth Gutierrez, ETCHER AIRCRAFT [Primary Care Provider] -
[2017-08-29] MEDS: PrednisoLONE Acetate 1% Opth 5 ML BOTTLE LEFT EYE SCH (19:44)
[2017-08-29] MEDS: Ketorolac OPTH Soln 5 ML BOTTLE LEFT EYE SCH (19:54)
[2017-08-30] MEDS: Famotidine 20 MG/2 ML VIAL IVP SCH (05:42)
[2017-08-30] MEDS: Sucralfate 1 GM TABLET PO SCH ×2 (07:59→11:58)
[2017-08-30 11:12] LABS: Hematocrit 32.8 % (37.5-50.1); Hemoglobin 11.6 g/dL (12.9-16.9); Mean Corpuscular HGB Conc 35.4 g/dL (31.6-35.5); Mean Corpuscular Hemoglobin 30.5 pg (28.0-33.3); Mean Corpuscular Volume 86.3 fL (83.0-100.0); Mean Platelet Volume 10.4 fL (9.4-12.4); Platelet Count 155 K/mcL (140-400); Red Cell Distribution Width 13.4 % (11.5-14.5)
[2017-08-30 11:35] VITALS: BP 123/76
--- NOTE | 2017-08-30 13:04 | Electrocardiograph Report ---
[place] [id number] Test Date: 2017-08-27 Pat Name: Madi Gross Department: 104 Room: [facility] Gender: M Ict Project Manager: XIMENA : [id number] Requested By: Charles Kc Order Number: [id number] Reading MD: Conrad Waite Measurements Intervals [place] Rate: 108 P: 20 VT: 197 QRS: 12 QRSD: 97 T: 3 QT: 317 QTc: 380 Interpretive Statements SINUS TACHYCARDIA Electronically Signed On 08-30-2017 13:03:20 EDT by Conrad Waite
[2017-08-30 14:30] LABS: BUN/Creatinine Ratio 10 (6-26); Blood Urea Nitrogen 9 mg/dL (8-23); Calcium 8.7 mg/dL (8.6-10.3); Carbon Dioxide 23 mEq/L (23-29); Chloride 101 mEq/L (98-107); Glucose 189 mg/dL (70-105); Osmolality,Calculated 282 (280-300); Potassium 3.5 mEq/L (3.5-5.1); Sodium 134 mEq/L (136-145); eGFR For African Americans > 60 (> 60); eGFR For Non-African Americans > 60 (> 60)
[2017-08-30 15:29] LABS: Basophils # 0.1 K/mcL (0.0-0.2); Lymphocytes # 0.9 K/mcL (0.6-4.6); Monocytes # 0.5 K/mcL (0.0-1.3); Neutrophils # 2.2 K/mcL (1.6-8.9); Platelet Estimate Normal (Normal)
--- NOTE | 2017-08-30 16:09 | Discharge Summary ---
- NOTES TO OUTPATIENT PROVIDER Notes to Outpatient Provider: Follow-up with hematology oncology for workup lytic lesion Date of Encounter: 08/30/17 Time of Encounter: 11:00 - Discharge Diagnosis (1) Lytic bone lesion of hip Priority: Primary Status: Acute (2) Gastroenteritis Priority: Primary Status: Acute (3) Leukopenia Priority: Secondary Status: Acute Qualifiers: Leukopenia type: neutropenia Neutropenia type: unspecified Qualified Code (s): D70.9 - Neutropenia, unspecified (4) T2DM (type 2 diabetes mellitus) Priority: Secondary Status: Chronic Qualifiers: Diabetes mellitus terminal block assembler insulin use: without custodial use Diabetes mellitus complication status: without complication Qualified Code(s): E11.9 - Type 2 diabetes mellitus without complications (5) HLD (hyperlipidemia) Priority: Secondary Status: Chronic Qualifiers: Hyperlipidemia type: unspecified Qualified Code(s): E78.5 - Hyperlipidemia , unspecified (6) HTN (hypertension) Priority: Secondary Status: Chronic Qualifiers: Hypertension type: essential hypertension Qualified Code(s): I10 - Essential (primary) hypertension Hospital course: Patient is 81-year-old male with past medical history significant for hyperlipidemia and diet controlled diabetes mellitus type 2 that presents complaining of right hip pain for the past week radiating to his leg. He reports nausea, vomiting, diarrhea for the past 4 days along with periumbilical abdominal pain, decreased appetite, and chills. He decided to come to the ER for evaluation where he was admitted for diarrhea and right hip pain. During patients hospital stay hematology/oncology was consulted with recommendations for CT of the abdomen/pelvis which revealed lytic lesion therefore skeletal survey was done which was negative and CT chest imaging showed no acute abnormalities. Patients diarrhea also resolved and stool cultures were negative. She was treated for viral gastroenteritis with supportive care including IV fluids. Patient will be discharged to follow up with hematology/oncology as outpatient. - Time Spent with Patient Total time spent providing and/or coordinating discharge services: Less than 30 minutes - Discharge Medications Prescriptions: Sucralfate [Carafate] 1 gm PO QIDA #120 tablet Home Medications: Aspirin Enteric Coated [Aspirin EC] 81 mg PO DAILY 08/27/17 [History] Celecoxib [Celebrex] 200 mg PO DAILY 08/27/17 [History] Cetirizine HCl [Zyrtec] 10 mg PO DAILY 08/27/17 [History] Ketorolac Tromethamine 1 drop OP DAILY 08/27/17 [History] Losartan [Cozaar] 25 mg PO DAILY 08/27/17 [History] Naproxen 500 mg PO BID PRN 08/27/17 [History] Omeprazole [PriLOSEC] 40 mg PO DAILY 08/27/17 [History] Simvastatin [Zocor] 40 mg PO HS 08/27/17 [History] PrednisoLONE Acetate 1% Opth [PredFORTE 1%] 1 drop LEFT EYE DAILY 08/28/17 [ History] Sucralfate [Carafate] 1 gm PO QIDAC #120 tablet 08/30/17 [Rx] Allergies/Adverse Reactions: 3 Allergy/AdvReac Type Severity Reaction Status Date / Time Penicillins [PCN] Allergy Hives Verified 08/27/17 14:10 Date of admission: 08/28/17 01:17 Primary care physician: Elizabeth Gutierrez CNP - Constitutional Vitals: Temp Pulse Resp BP Pulse Ox 98.6 F 81 14 123/76 95 08/30/17 11:34 08/30/17 11:34 08/30/17 11:34 08/30/17 11:34 08/30/17 11:34 General appearance: Present: cooperative, A&O X 3, pleasant, no acute distress, obese, answers questions appropriately - Respiratory Respiratory exam: Present: CTAB. Absent: accessory muscle use, rales, rhonchi, wheezes - Cardiovascular Cardiovascular exam: Present: RRR, +S1, +S2. Absent: diastolic murmur, gallop, rubs, systolic murmur - Patient Status Disposition: Home, Self-Care Condition: Fair - Discharge Instructions Follow Up With: Elizabeth Gutierrez CNP [Primary Care Provider] - 09/27/17 2:30 pm - VTE Documentation of Mechanical Device: Intermittent pneumatic compression device
--- NOTE | 2017-08-30 16:36 | Oncology Inp Progress Note ---
Date of Encounter: 08/30/17 Time of Encounter: 15:30 (1) Lytic bone lesion of hip Status: Acute Assessment and plan: CT abdomen/pelvis reveals Lytic lesion involving the right iliac bone. 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 SPEP is pending to r/o plasma cell dyscrasia. Consider IR bx of lytic lesion pending SPEP results. Other abdominal findings noted on CT scan-his GI symptoms have since resolved over weekend, consider outpatient GI consultation for endoscopy His pain is well controlled and he is planned for discharge home today. We will call with a follow up with Dr. Ritter to review SPEP results which will take a few days to return. Next steps to be discussed dependant upon results of SPEP. Oncology: Subj Interval history: Mr Douglas is sitting on the side of the bed, his is at bedside. He currently denies pain, states that his gastroenteritis symptoms have now resolved, he denies diarrhea, nausea or vomiting. He has been ambulating about in room without difficulty. - Constitutional Vitals: Vital Signs Temp Pulse Resp BP Pulse Ox 08/30/17 11:34 98.6 F 81 14 123/76 95 08/30/17 07:29 97.4 F L 85 16 119/70 95 08/30/17 03:57 98.2 F 98 18 123/63 95 08/30/17 01:36 99.0 F 91 18 104/65 98 08/29/17 19:13 98.0 F 90 16 136/73 96 Intake and Output 08/30/17 08/30/17 08/30/17 07:59 15:59 23:59 Intake Total 840 / 840 Output Total 350 / 350 Balance 490 / 490 Intake: Oral 840 / 840 Output: Urine 350 / 350 Other: Meal Lunch Percent of Meal Consumed 50% Stool Size Moderate Stool Consistency liquid Stool Color Brown Yellow Blood Glucose* 141 General appearance: cooperative, no acute distress, no febrile - Head Head exam: Present: atraumatic - ENT ENT exam: Present: mucous membranes moist - Respiratory Respiratory exam: Present: CTAB. Absent: respiratory distress - Cardiovascular Cardiovascular exam: Present: RRR, +S1, +S2 - GI/Abdominal GI/Abdominal exam: Present: normal bowel sounds, soft. Absent: guarding, rebound, tenderness - Extremities Exam Extremities exam: Present: normal inspection. Absent: calf tenderness - Neurological Exam Neurological exam: Present: alert, oriented X3, no focal deficits, strengths equal and symetr throughout - Psychiatric Psychiatric exam: Present: normal affect, normal mood - Skin Skin exam: Present: dry, intact, normal color, warm Oncology: Obj Data - Labs CBC & Chem 7: 08/30/17 10:28 08/30/17 10:28 Labs: Laboratory Results - last 24 hr 08/29/17 08/30/17 08/30/17 19:11 10:28 10:28 WBC 3.7 L RBC 3.80 L Hgb 11.6 L Hct 32.8 L MCV 86.3 MCH 30.5 MCHC 35.4 RDW 13.4 Plt Count 155 MPV 10.4 Seg Neutrophils % 46.0 Band Neutrophils % 14.0 H Lymphocytes % 24.0 Monocytes % 14.0 Basophils % 2.0 Neutrophils # 2.2 Lymphocytes # 0.9 Monocytes # 0.5 Basophils # 0.1 Platelet Estimate Normal Sodium 134 L Potassium 3.5 Chloride 101 Carbon Dioxide 23 BUN 9 Creatinine 0.92 Est GFR ( Amer) > 60 Est GFR (Non-Af Amer) > 60 BUN/Creatinine Ratio 10 Glucose 189 H POC Glucose 199 H Calculated Osmolality 282 Calcium 8.7 Consult Discharge Plan - Plan Referrals: Elizabeth Gutierrez CNP [Primary Care Provider] - 09/27/17 2:30 pm Prescriptions: Sucralfate [Carafate] 1 gm PO QIDAC #120 tablet
[2017-08-30 21:25] LABS: Alpha 2 Globulin (PEP) 0.99 g/dL (0.48-1.05); Beta Globulin (PEP) 2.57 g/dL (0.48-1.10)
[2017-08-31 08:11] LABS: IFE Reflexed IFE Done; Immunoglobulin A 2740 mg/dL (68-408); Immunoglobulin G 275 mg/dL (768-1632); Immunoglobulin M 5 mg/dL (35-263)
== END 2017-08-30 16:58 | disposition home or self-care (01) | DRG 566 ==
LOC: 3NENU 14:02 → EMEROO 14:02 → 3NENU 20:09 → SUATTDRO 08-28 01:17
PROVIDERS: ADMIT Internal Medicine Nephrology; ATTEND Hospitalist